=== PATIENT | female | born 2000 | race African-American/Black ===

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

== ENCOUNTER → 2022-09-06 | Outpatient (CLI) | payer MEDICAID, SELFPAY ==
[2022-09-06 12:28] LABS: Absolute Lymphocyte Count 1.59 X10^3/uL (0.83-4.51); Absolute Neutrophil Count 5.4 X10^3/uL (2.0-7.7); Basophil# 0.04 X10^3/uL; Basophil% 0.5 % (0-1); Eosinophil# 0.07 X10^3/uL; Eosinophils% 0.9 % (0-5); Hematocrit 36.1 % (37-47); Hemoglobin 12.5 g/dL (12.0-15.0); Lymphocyte # 1.59 X10^3/ul (0.83-4.51); Lymphocyte % 21.5 % (19-41); Mean Corp Hgb Conc 34.6 g/dL (32-36); Mean Corpuscular Hgb 32.1 pg (27.0-32.0); Mean Corpuscular Volume 92.8 fL (81-99); Mean Platelet Vol. 10.1 fl (6.2-12.0); Monocyte# 0.31 X10^3/uL; Monocyte% 4.2 % (0-10); NRBC Flagged by Analyzer 0 % (0-5); Neutrophil # 5.38 X10^3/uL (2.7-7.7); Neutrophil % 72.6 % (47-70); Platelet Count 261 K/mm3 (150-450); RBC Distribution Width CV 12.4 % (11.6-14.6); RBC Distribution Width SD 42.3 fl (35.1-43.9); Red Blood Count 3.89 M/mm3 (4.2-5.4); White Blood Count 7.4 K/mm3 (4.4-11.0)
[2022-09-06 13:40] LABS: HIV - WCH Non-Reactive (Nonreactive); Hepatitis B Surface Antigen Non-Reactive (Nonreactive); Hepatitis C Antibody Non-Reactive (Nonreactive); Rubella IgG Reactive (Nonreactive); Syphilis Antibodies Non-reactive
[2022-09-07 09:50] LABS: V-Zoster IgG (Immunity) < 135 index (Immune >165)
== END | disposition home or self-care (01) ==
LOC: WOBLAB 12:04
PROVIDERS: PCP Pediatrics; Visit Provider Obstetrics & Gynecology
DX: Z34.81 Encounter for supervision of other normal pregnancy, first trimester (principal)
CPT/HCPCS: 36415; 85025; 86703; 86762; 86780; 86787; 86803; 87086; 87340

== ENCOUNTER → 2023-01-03 | Outpatient (CLI) | payer MEDICAID, SELFPAY ==
[2023-01-03 11:40] LABS: Hematocrit 36.8 % (37-47); Hemoglobin 12.4 g/dL (12.0-15.0); Mean Corp Hgb Conc 33.7 g/dL (32-36); Mean Corpuscular Volume 97.9 fL (81-99); Mean Platelet Vol. 10.4 fl (6.2-12.0); Platelet Count 241 K/mm3 (150-450); RBC Distribution Width CV 12.4 % (11.6-14.6); RBC Distribution Width SD 44.9 fl (35.1-43.9); Red Blood Count 3.76 M/mm3 (4.2-5.4); White Blood Count 10.9 K/mm3 (4.4-11.0)
[2023-01-03 11:49] LABS: Glucose Challenge Gest 1H 50g 71 mg/dL (70-140)
[2023-01-03 12:07] LABS: Syphilis Antibodies Non-reactive
== END | disposition home or self-care (01) ==
LOC: WOBLAB 10:57
PROVIDERS: PCP Pediatrics; Visit Provider Obstetrics & Gynecology
DX: Z34.82 Encounter for supervision of other normal pregnancy, second trimester (principal)
CPT/HCPCS: 36415; 82950; 85027; 86780

== ENCOUNTER 2023-04-02 18:05 | Outpatient (CLI) | payer MEDICAID, SELFPAY ==
[2023-04-02 18:28] VITALS: BMI 29.5
[2023-04-02 18:36] VITALS: BP 115/70; PULSE 80; TEMP 36.9
[2023-04-02 19:33] VITALS: BMI 26.0
--- NOTE | 2023-04-03 03:29 | OB.TRI.PN ---
Progress Notes Progress Note: at 39w3d for complaint of contractions and decreased movement. No vaginal bleeding or leakage of fluid. Contractions started last night and on and off throughout the day. Contractions 5-10 minutes apart and some are painful. Laboratory Studies: NST 135, moderate, accels, 1 variable deceleration. Reactive 1cm/50/-2 Assessment & Plan (1) Decreased movement: (2) 39 weeks gestation of : PLAN: Plan 1) Reactive NST 2) Not in active labor, D/C home, labor instructions reviewed and patient agreeable to plan
== END 2023-04-02 19:40 | disposition home or self-care (01) ==
LOC: WPOUT 18:13 → WP 18:13
PROVIDERS: PCP Pediatrics; Visit Provider Advanced Practice Midwife
DX: O36.8130 Decreased fetal movements, third trimester, not applicable or unspecified (principal); Z3A.39 39 weeks gestation of pregnancy
CPT/HCPCS: 59025; 59050; 99221; G0378

== ENCOUNTER 2023-04-08 02:24 | Outpatient (CLI) | payer MEDICAID, SELFPAY ==
[2023-04-08 02:26] VITALS: BMI 26.3
[2023-04-08 02:39] VITALS: TEMP 37.3; O2SAT 100
[2023-04-08 02:40] VITALS: BP 146/95; PULSE 67
[2023-04-08 04:01] VITALS: BP 129/83; PULSE 71
[2023-04-09] VITALS (76 sets, daily range): BP systolic 106–163; BP diastolic 58–98; PULSE 66–102; TEMP 36.5–37.2; O2SAT 81–100
== END 2023-04-08 04:55 | disposition home or self-care (01) ==
LOC: WPOUT 02:24 → WP 02:24
PROVIDERS: PCP Pediatrics; Visit Provider Advanced Practice Midwife
DX: O47.9 False labor, unspecified (principal); Z3A.00 Weeks of gestation of pregnancy not specified
CPT/HCPCS: 59025; 59050 ×2; G0378 ×2; 99221

== ENCOUNTER 2023-04-09 01:28 | Inpatient (IN) | payer MEDICAID, SELFPAY ==
[2023-04-09 01:36] VITALS: BMI 25.2
[2023-04-09] MEDS: Lactated Ringers 1,000 ML 200 ML IV ×2 (01:45→07:22)
[2023-04-09] MEDS: LACTATED RINGERS 500 ML 999 ML IV (01:45)
[2023-04-09 01:55] LABS: Absolute Neutrophil Count 10.2 X10^3/uL (2.0-7.7); Basophil# 0.04 X10^3/uL; Basophil% 0.3 % (0-1); Eosinophil# 0.07 X10^3/uL; Eosinophils% 0.5 % (0-5); Hematocrit 35.3 % (37-47); Hemoglobin 11.5 g/dL (12.0-15.0); Lymphocyte % 16.7 % (19-41); Mean Corp Hgb Conc 32.6 g/dL (32-36); Mean Corpuscular Hgb 30.5 pg (27.0-32.0); Mean Corpuscular Volume 93.6 fL (81-99); Mean Platelet Vol. 11.3 fl (6.2-12.0); Monocyte# 0.65 X10^3/uL; Monocyte% 4.9 % (0-10); NRBC Flagged by Analyzer 0 % (0-5); Neutrophil # 10.16 X10^3/uL (2.7-7.7); Neutrophil % 77.1 % (47-70); Platelet Count 267 K/mm3 (150-450); RBC Distribution Width CV 12.8 % (11.6-14.6); RBC Distribution Width SD 43.8 fl (35.1-43.9); Red Blood Count 3.77 M/mm3 (4.2-5.4); White Blood Count 13.2 K/mm3 (4.4-11.0)
[2023-04-09] MEDS: fentaNYL-bupivacaine (epidural) 100 ML BAG EPIDURAL ×2 (03:00→07:50)
[2023-04-09 03:41] LABS: Syphilis Antibodies Non-reactive
[2023-04-09] MEDS: Ondansetron 4 MG/2 ML Vial IV (07:51)
--- NOTE | 2023-04-09 08:40 | PCM.HP.OB ---
HPI - General General Date of Admission: 04/09/23 HPI Narrative NORMA SHIRLEY, is a 23 F who presents at 40w2d with contractions that started yesterday and have continued. Increased in frequency and pain. No leakage of fluid or vaginal bleeding. History of CT in August,, negative in . Maternal Data Information MITCHELL Calculator Estimated Delivery Date Method Current WG Current Estimate 04/07/23 Manual 40w 2d PFSH PFSH Home Medications PNV#14-iron fum-FA#4-ren-[id number] 27 mg iron-1 mg-300 mg-50 mg capsule 1 cap PO 04/02/23 [History Last Taken 04/08/23] Allergy/AdvReac Type Severity Reaction Status Date / Time cefazolin AdvReac Mild Hives Verified 04/09/23 01:37 EST Social History (Updated 07/19/18 @ 16:12 by Dane KHAN, PA) Smoking Status: Former smoker alcohol intake: never History Elective abortions Hx Para 0 Spontaneous abortions Hx # Term Pregnancies Ectopic pregnancies Hx # Pregnancies Multiple births # of living children NST FHR Rate Baby A Baseline: 125 Variability:: Moderate Accelerations:: 15 x 15 Decelerations:: Variable FHR Category:: Category II Uterine Activity:: every 2-5 minutes, strong ROS Constitutional Constitutional: Reports systems reviewed and no addt'l complaints, except as documented; Denies headache(s) Eyes Eyes: Denies acute decrease in peripheral vision, blurry vision or change in vision ENT HEENT: Reports systems reviewed and no addt'l complaints, except as documented Cardiovascular Cardiovascular: Denies chest pain or dizziness Respiratory/Chest Respiratory/Chest: Denies cough, dyspnea, dyspnea on exertion, shortness of breath at rest or shortness of breath with exertion Gastrointestinal Gastrointestinal: Denies abdominal pain, diarrhea, nausea or vomiting Genitourinary Genitourinary: Denies abdominal discomfort Musculoskeletal Musculoskeletal: Denies limited range of motion Integumentary Integumentary: Reports systems reviewed and no addt'l complaints, except as documented Neurologic Neurologic: Reports systems reviewed and no addt'l complaints, except as documented Psychiatric Psychiatric: Reports systems reviewed and no addt'l complaints, except as documented Endocrine Endocrinology: Reports systems reviewed and no addt'l complaints, except as documented Hematologic/Lymphatic Hematologic/Lymphatic: Reports systems reviewed and no addt'l complaints, except as documented Allergic/Immunologic Allergic/Immunologic: Reports systems reviewed and no addt'l complaints, except as documented Vital Signs Vital Signs Vital Signs: Weight Weight: 142 lb 9.6 oz Body Mass Index (BMI) 25.2 Physical Exam Const alert and oriented x3 General Appearance: cooperative Orientation / Consciousness: awake, oriented to person, oriented to place and oriented to time Exam Limitations: no limitations HEENT normocephalic Head and Scalp: normal to inspection, normocephalic and atraumatic Face and Sinus: normal facial exam Eyes General Eye: normal appearance of both eyes Neck full ROM Chest Chest: symmetrical chest wall rise Resp normal respiratory effort and normal air movement Auscultation: clear to auscultation bilaterally Cardio regular rate, regular rhythm, S1 normal heart sound, S2 normal heart sound, no murmurs, no rub, no gallops and no clicks GI normal to inspection, nondistended, normoactive bowel sounds and non-tender appearance of the vagina normal Bladder / Kidney Exam: no CVA tenderness Amniotic Fluid: other SROM. Appears clear amniotic fluid but small greenish mucous. Will continue to monitor for possible meconium. Back/Spine normal ROM Extremity normal to inspection and full ROM Skin no rashes or lesions noted Neuro oriented x3 and moves all extremities Sensorium / Orientation: awake, alert and oriented to person Labs Labs Labs: Blood Type A POSITIVE Antibody Screen NEGATIVE Hct 35.3 % (37-47) L Hgb 11.5 g/dL (12.0-15.0) L Syphilis Total Ab Non-reactive VZV IgG Antibody < 135 index (Immune >165) L Rubella IgG Antibody Reactive (Nonreactive) Hep Bs Antigen Non-Reactive (Nonreactive) Hepatitis C Antibody Non-Reactive (Nonreactive) HIV 1&2 Antibody Non-Reactive (Nonreactive) Glucose 1 Hr 50 gm 71 mg/dL (70-140) GC/CT negative GBS negative Assessment & Plan (1) 40 weeks gestation of : (2) Active labor at term: (3) History of bipolar disorder: (4) History of depression: (5) History of chlamydia: PLAN: Plan 1) Admit to labor and delivery 2) Epidural for pain management 3) Routine labs 4) GBS negative 5) Continuous EFM 6) collaborative physician and notified of patient status
[2023-04-09] MEDS: Oxytocin 15 Units/NS 250ml 15 UNITS/250 ML IV.SOLN 2 UNITS IV (09:55)
--- NOTE | 2023-04-09 10:42 | OB.TRI.PN_ITS ---
Progress Notes Progress Note: Presents at 40w1d with MITCHELL 04/07/23 with irregular contractions. No leakage of fluid or vaginal bleeding NST 125, moderate, accels, Irregular, mild Laboratory Studies: Laboratory Tests 04/09/23 Range/Units 01:45 EST WBC 13.2 H (4.4-11.0) K/mm3 RBC 3.77 L (4.2-5.4) M/mm3 Hgb 11.5 L (12.0-15.0) g/dL Hct 35.3 L (37-47) % MCV 93.6 (81-99) fL MCH 30.5 (27.0-32.0) pg MCHC 32.6 (32-36) g/dL RDW Std Deviation 43.8 (35.1-43.9) fl RDW Coeff of Siva 12.8 (11.6-14.6) % Plt Count 267 (150-450) K/mm3 MPV 11.3 (6.2-12.0) fl Immature Gran % (Auto) 0.500 (0.0-0.9) % Neut % (Auto) 77.1 H (47-70) % Lymph % (Auto) 16.7 L (19-41) % [place] % (Auto) 4.9 (0-10) % Eos % (Auto) 0.5 (0-5) % Baso % (Auto) 0.3 (0-1) % Absolute Neuts (auto) 10.2 H (2.0-7.7) X10^3/uL Absolute Lymphs (auto) 2.20 (0.83-4.51) X10^3/uL Nucleated RBC % 0 (0-5) % Syphilis Total Ab Non-reactive Blood Type A POSITIVE Antibody Screen NEGATIVE Assessment & Plan (1) Irregular contractions: PLAN: Plan 1) No signs of active labor 2) D/C home
[2023-04-09] MEDS: Lactated Ringers 1,000 ML 999 ML IV (11:31)
--- NOTE | 2023-04-09 12:01 | EX.PCM.OBRPT ---
Assessment & Plan (1) Vaginal delivery: (2) First degree perineal laceration: Maternal Data Information MITCHELL Calculator Estimated Delivery Date Method Current WG Current Estimate 04/07/23 Manual 40w 2d Vaginal Delivery Maternal Presentation Maternal Presentation: Active Labor (pitocin augmentation) Operative Information Date of Procedure: 04/09/23 Pre-Operative Diagnosis: Active labor Post-Operative Diagnosis: Surgery / Procedure Performed: Spontaneous Vaginal Delivery Type of Anesthesia: Epidural Estimated Blood Loss: 250 ml Time of Delivery: 11:46 Findings Description of Procedure: Progressed to complete with urge to push. Epidural for pain management. of viable female infant over first degree periurethral laceration. APGARS 8,9 respectively. head delivered with body immediately forthcoming. Placed on maternal abdomen, strong cry. Mouth and nares suctioned for secretions. Pitocin started for active 3rd stage management. Cord doubly clamped and cut by friend after pulsations ceased, delayed cord clamping. Placenta delivered intact via dario, 3 vessel cord intact. Perineum inspected and revealed 1st degree periurethral laceration. Repaired with 3.0 vicryl rapide and epidural. Fundus firm and hemostasis achieved. EBL 250ml. Mom and baby stable, planning to breastfeed. Family bonding well. at hospital and notified of delivery. Presentation: Vertex and SANDI Amniotic Membrane Rupture Type: Spontaneous Amniotic Fluid Description: Clear Placental Delivery Description: Spontaneous Placenta Disposition: [facility] Cord Vessel Description: 3 Vessels Cord Entanglement: None A Gender: Female (1 minute): 8 (5 minute): 9 Delayed Cord Clamping: Yes Post Vaginal Delivery Medications Given After Delivery: IV Pitocin Episiotomy Description: None Laceration: Periurethral Extnsion/lac and 1st degree Complication Complications: None
[2023-04-09] MEDS: Oxytocin 15 Units/NS 250ml 15 UNITS/250 ML IV.SOLN 83 UNITS IV (12:36)
[2023-04-09] MEDS: Ibuprofen 600 MG Tablet PO (15:00)
[2023-04-09 16:30] VITALS: BP 134/72; PULSE 63; RESP 16; TEMP 36.8
[2023-04-09 18:54] VITALS: BP 145/70
[2023-04-09 19:55] VITALS: BP 120/85; PULSE 75; RESP 16; TEMP 36.8
--- NOTE | 2023-04-09 20:02 | NURSING ---
Pt requested IV to be taken out. This RN educated pt the possible need to have a new IV started due to high BP and trouble urinating. Pt verbalized understanding
[2023-04-09 20:25] LABS: Absolute Lymphocyte Count 1.72 X10^3/uL (0.83-4.51); Absolute Neutrophil Count 11.8 X10^3/uL (2.0-7.7); Basophil# 0.05 X10^3/uL; Basophil% 0.3 % (0-1); Eosinophil# 0.04 X10^3/uL; Eosinophils% 0.3 % (0-5); Hematocrit 31.1 % (37-47); Hemoglobin 10.2 g/dL (12.0-15.0); Lymphocyte # 1.72 X10^3/ul (0.83-4.51); Lymphocyte % 11.8 % (19-41); Mean Corp Hgb Conc 32.8 g/dL (32-36); Mean Corpuscular Hgb 30.8 pg (27.0-32.0); Mean Platelet Vol. 10.9 fl (6.2-12.0); Monocyte# 0.94 X10^3/uL; Monocyte% 6.4 % (0-10); NRBC Flagged by Analyzer 0 % (0-5); Neutrophil # 11.77 X10^3/uL (2.7-7.7); Neutrophil % 80.7 % (47-70); Platelet Count 214 K/mm3 (150-450); RBC Distribution Width CV 12.8 % (11.6-14.6); RBC Distribution Width SD 44.3 fl (35.1-43.9); Red Blood Count 3.31 M/mm3 (4.2-5.4); White Blood Count 14.6 K/mm3 (4.4-11.0)
[2023-04-09 20:48] LABS: ALB/GLOB Ratio 0.8 RATIO (0.9-2.4); AST(SGOT) 32 U/L (15-37); Alanine Aminotransfer ALT/SGPT 18 U/L (13-56); Albumin, Serum 2.5 g/dL (3.2-5.0); Alkaline Phosphatase 130 U/L (45-117); Anion Gap 5 (5-15); BUN 9 mg/dL (7-18); BUN/Creat Ratio 12.6 RATIO (10-20); Calcium,Total 8.1 mg/dL (8.5-10.1); Chloride 108 mmol/L (98-107); Creatinine, Serum 0.71 mg/dL (0.55-1.02); EST Glomerular Filtration Rate 110 mL/min (>60); Est Glom Filt Rate - Afr Amer 133 mL/min (>60); Estimated Creatinine Clearance 103.68 ml/min; Globulin 3.1 g/dL (2.2-4.2); Glucose 97 mg/dL (74-106); Potassium 3.9 mmol/L (3.5-5.1); Protein, Total 5.6 g/dL (6.4-8.2); Sodium Level 138 mmol/L (136-145)
[2023-04-09 20:52] VITALS: BP 135/78; PULSE 72
[2023-04-09] MEDS: NIFEdipine 30 MG Tablet PO (21:17)
[2023-04-09 21:55] VITALS: BP 125/84
[2023-04-09 23:26] VITALS: BP 132/84; PULSE 81; RESP 16; TEMP 36.7
[2023-04-10 04:31] VITALS: BP 103/74; PULSE 80; RESP 16; TEMP 36.7
[2023-04-10 07:39] VITALS: BP 113/77; PULSE 82; RESP 18; TEMP 36.6; O2SAT 99
--- NOTE | 2023-04-10 08:48 | PCM.PN.OB ---
Subjective Subjective Pain well controlled. Average lochia. Denies headache or visual changes. Objective Data Objective Data Vital Signs: Vital Signs Temp Pulse Resp BP Pulse Ox O2 Del Method 97.9 F 82 18 113/77 99 Room Air 04/10/23 07:39 04/10/23 07:39 04/10/23 07:39 04/10/23 07:39 04/10/23 07:39 04/10/23 07:39 Oxygen Delivery Method Room Air Weight: 64.682 kg Body Mass Index (BMI) 25.2 Intake & Output: Intake and Output for Last 24 Hours 04/09/23 04/09/23 04/10/23 00:59 23:59 23:59 Intake Total Output Total Balance Lab / Micro Data 04/09/23 20:18 04/09/23 20:18 Labs: Laboratory Results - last 24 hr 04/09/23 20:18: WBC 14.6 H, RBC 3.31 L, Hgb 10.2 L, Hct 31.1 L, MCV 94.0, MCH 30.8, MCHC 32.8, RDW Std Deviation 44.3 H, RDW Coeff of Siva 12.8, Plt Count 214, MPV 10.9, Immature Gran % (Auto) 0.500, Neut % (Auto) 80.7 H, Lymph % (Auto) 11.8 L, [place] % (Auto) 6.4, Eos % (Auto) 0.3, Baso % (Auto) 0.3, Absolute Neuts (auto) 11.8 H, Absolute Lymphs (auto) 1.72, Nucleated RBC % 0, Sodium 138, Potassium 3.9, Chloride 108 H, Carbon Dioxide 25.0, Anion Gap 5, BUN 9, Creatinine 0.71, Estim Creat Clear Calc 103.68, Est GFR (MDRD) Af Amer 133, Est GFR (MDRD) Non-Af 110, BUN/Creatinine Ratio 12.6, Glucose 97, Calcium 8.1 L, Total Bilirubin 0.90, AST 32, ALT 18, Alkaline Phosphatase 130 H, Total Protein 5.6 L, Albumin 2.5 L, Globulin 3.1, Albumin/Globulin Ratio 0.8 L Physical Exam Const alert and no apparent distress Narrative: Fundus firm, below umbilicus. Assessment & Plan (1) Vaginal delivery: PLAN: day #1 status post vaginal delivery. Blood pressure elevated overnight, was started on Procardia. No evidence of severe preeclampsia. Will monitor overnight to ensure blood pressures are stable. Recheck CBC today.
[2023-04-10 12:24] VITALS: BP 136/74; PULSE 83; RESP 18; TEMP 37.2
[2023-04-10 14:01] LABS: Hematocrit 31.8 % (37-47); Hemoglobin 10.4 g/dL (12.0-15.0); Mean Corp Hgb Conc 32.7 g/dL (32-36); Mean Corpuscular Hgb 30.9 pg (27.0-32.0); Mean Corpuscular Volume 94.4 fL (81-99); Mean Platelet Vol. 11.1 fl (6.2-12.0); Platelet Count 222 K/mm3 (150-450); RBC Distribution Width CV 13.2 % (11.6-14.6); RBC Distribution Width SD 45.4 fl (35.1-43.9); Red Blood Count 3.37 M/mm3 (4.2-5.4); White Blood Count 13.8 K/mm3 (4.4-11.0)
[2023-04-10] MEDS: Ibuprofen 600 MG Tablet PO (15:48)
[2023-04-10 15:51] VITALS: BP 138/87; PULSE 72; RESP 18; TEMP 37.2
[2023-04-10] MEDS: NIFEdipine 30 MG Tablet PO (18:28)
[2023-04-10 20:30] VITALS: BP 132/80; PULSE 84; RESP 15; TEMP 36.3; O2SAT 97
[2023-04-11 02:00] VITALS: BP 113/56; PULSE 67; RESP 15; TEMP 36.9; O2SAT 96
[2023-04-11 07:50] VITALS: BP 109/65; PULSE 105; RESP 16; TEMP 36.1; O2SAT 95
[2023-04-11] MEDS: Ibuprofen 600 MG Tablet PO (07:51)
--- NOTE | 2023-04-11 10:39 | PN.OBGYN_ITS ---
Subjective Subjective Doing well per patient and nursing staff. Ambulating and taking PO without difficulty. Voiding and passing flatus. Pain controlled. , services for assistance. Denies headache, visual changes, chest pain, shortness of breath, leg pain or increased bleeding. Lochia normal. Objective Data Objective Data Vital Signs: Vital Signs Temp Pulse Resp BP Pulse Ox O2 Del Method 96.9 F L 105 H 16 109/65 95 Room Air 04/11/23 07:50 04/11/23 07:50 04/11/23 07:50 04/11/23 07:50 04/11/23 07:50 04/11/23 07:50 Oxygen Delivery Method Room Air Weight: 142 lb 9.6 oz Body Mass Index (BMI) 25.2 Intake & Output: Intake and Output for Last 24 Hours 04/09/23 04/10/23 04/11/23 23:59 23:59 23:59 Intake Total Output Total Balance Lab / Micro Data 04/10/23 13:50 04/09/23 20:18 Labs: Laboratory Results - last 24 hr 04/10/23 13:50: WBC 13.8 H, RBC 3.37 L, Hgb 10.4 L, Hct 31.8 L, MCV 94.4, MCH 30.9, MCHC 32.7, RDW Std Deviation 45.4 H, RDW Coeff of Siva 13.2, Plt Count 222, MPV 11.1 ROS Constitutional Constitutional: Reports systems reviewed and no addt'l complaints, except as documented; Denies headache(s) Eyes Eyes: Denies acute decrease in peripheral vision, blurry vision or change in vision ENT HEENT: Reports systems reviewed and no addt'l complaints, except as documented Cardiovascular Cardiovascular: Denies chest pain or dizziness Respiratory/Chest Respiratory/Chest: Denies cough, dyspnea, dyspnea on exertion, shortness of breath at rest or shortness of breath with exertion Gastrointestinal Gastrointestinal: Denies abdominal pain, diarrhea, nausea or vomiting Genitourinary Genitourinary: Denies abdominal discomfort Musculoskeletal Musculoskeletal: Denies limited range of motion Integumentary Integumentary: Reports systems reviewed and no addt'l complaints, except as documented Neurologic Neurologic: Reports systems reviewed and no addt'l complaints, except as docu mented Psychiatric Psychiatric: Reports systems reviewed and no addt'l complaints, except as documented Endocrine Endocrinology: Reports systems reviewed and no addt'l complaints, except as documented Hematologic/Lymphatic Hematologic/Lymphatic: Reports systems reviewed and no addt'l complaints, except as documented Allergic/Immunologic Allergic/Immunologic: Reports systems reviewed and no addt'l complaints, except as documented Physical Exam Const alert and oriented x3 General Appearance: cooperative Orientation / Consciousness: awake, oriented to person, oriented to place and oriented to time Exam Limitations: no limitations HEENT normocephalic Head and Scalp: normal to inspection, normocephalic and atraumatic Face and Sinus: normal facial exam Eyes General Eye: normal appearance of both eyes Neck full ROM Chest Chest: symmetrical chest wall rise Resp normal respiratory effort and normal air movement Auscultation: clear to auscultation bilaterally Cardio regular rate, regular rhythm, S1 normal heart sound, S2 normal heart sound, no murmurs, no rub, no gallops and no clicks GI normal to inspection, nondistended, normoactive bowel sounds and non-tender appearance of the vagina normal Bladder / Kidney Exam: no CVA tenderness Back/Spine normal ROM Extremity normal to inspection and full ROM Skin no rashes or lesions noted Neuro CN's II-XII intact bilaterally and moves all extremities Sensorium / Orientation: awake, alert and oriented to person Assessment & Plan (1) Vaginal delivery: (2) First degree perineal laceration: PLAN: Plan 1) Routine PP care, PPD#2 and GHTN 2) BP mild to normal range, Will continue procardia XL 30mg PO once daily. 3) Follow up for BP check in 3 days in office 4) D/C home today
--- NOTE | 2023-04-11 10:42 | PCM.DC.SUM ---
Providers Date of Admission: 04/09/23 Primary Care Physician: Dr. Kady Rdz MD Reason For Visit: VAGINAL DELIVERY Diagnosis Discharge Diagnosis (1) Vaginal delivery: Status: Acute Code(s): O80 - Encounter for full-term uncomplicated delivery (2) First degree perineal laceration: Status: Acute Code(s): O70.0 - First degree perineal laceration during delivery Plan 1) Routine PP care, PPD#2 and GHTN 2) BP mild to normal range, Will continue procardia XL 30mg PO once daily. 3) Follow up for BP check in 3 days in office 4) D/C home today Medications at Discharge Home Medications PNV#14-iron fum-FA#6-[id number]-ghlltipm 27 mg iron-1 mg-300 mg-50 mg capsule 1 cap PO 04/02/23 Hospital Course Summary of Care Provided Minutes Spent on Discharge: 15 Weight / BMI Weight Weight: 142 lb 9.6 oz Body Mass Index (BMI) 25.2 ABG / Lab / Microbiology Data 04/10/23 13:50 04/09/23 20:18 Laboratory: Laboratory Results - last 24 hr 04/10/23 13:50: WBC 13.8 H, RBC 3.37 L, Hgb 10.4 L, Hct 31.8 L, MCV 94.4, MCH 30.9, MCHC 32.7, RDW Std Deviation 45.4 H, RDW Coeff of Siva 13.2, Plt Count 222, MPV 11.1 Meaningful Use Info Meaningful Use Diagnoses (Choose all that apply): None applicable Discharge Plan Admission Admit Date/Time: 04/09/23 01:28 EST Primary Reason for Your Visit: Vaginal Delivery, high blood pressure Attending Provider: Jayne Ramirez Primary Care Provider: Kady Rdz Instructions Patient Instructions: Eclampsia After Childbirth Additional Instructions / Restrictions: Please check blood pressure daily. If BP is 110/70 or below please call the office for further instructions and if you should continue to take or hold the medications. Bring your blood pressure log to each visit. Discharge Orders/Prescriptions Prescriptions: No Action PNV #14-iron-FA#6-[id number] 27 mg iron-1 mg -300 mg-50 mg capsule 1 cap PO Referrals / Follow Up: Jayne Ramirez CNM [Med Staff - Adv Practice Prof] - (Follow up for BP check end of week in office. Follow up in 2 weeks and 6 weeks PP. ) Kady Rdz MD [Primary Care Provider] - Disposition Disposition (needs filled in before D/C Order can be placed): Home, Self Care
--- NOTE | 2023-04-11 11:07 | CASEMGMT ---
Social Work Assessment Labor and Delivery Unit Patient Address:[address] [place] [address] [place] [address] Phone number: [phone] Date of Referral: 04/09/23 Time of Referral:? 1621 Referred By: Jayne Ramirez Date of Intervention: ??04/11/23 Time of Intervention:? 944 Reason for Referral:? History of anxiety and depression Sw completed chart review and acknowledges social work consult entered due to maternal mental health history. Sw presented to bedside and introduced self to mother of baby (JOSELYN Yang) and explained sw role during hospitalization. Sw completed psychosocial assessment, asked MOB to complete an Harrison Depression Scale and provided information and literature regarding baby blues and depression. History obtained from: medical records and mother of baby (KATT)??? Household composition: Currently residing with KATT is baby. MOB states that noone else lives with her at this time. Patient's parent/guardian status:? KATT states that she used to work as a dancer at a [employer] and met father of kenny (FOB- Juancarlos) while working there. MOB states that Juancarlos was a bouncer at the club when she worked there and they started seeing each other. KATT states that EDDY has three other children- she does not know how old they are. MOB states that she is not certain of the status of her relationship with EDDY at this time, but does know that he intends to assist in parenting with KATT. KATT denies any concerns of domestic violence or intimate partner violence. ? Medical History: KATT is 1, para 0- now 1 following delivery of baby. KATT received routine care during with [facility]. KATT delivered baby on 04/09/23 via vaginal delivery at 40 weeks gestation. Baby girl, named Elida Schroeder, was born weighing 7lb 12oz and her apgars were 8 and 9 at one and five minutes of life respectfully. KATT reports that she is breast feeding and it is going well. Educational Status:? MOB states that she graduated from high school after attending [employer]. MOB denies any concerns with reading, learning or comprehension. 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 KATT is able to take four weeks off for maternity leave. MOB states that EDDY is also gainfully employed outside of the home. He is working two jobs. Supplies: KATT reports to obtaining all necessary baby supplies including: car seat, safe sleep space, clothes, diapers, wipes and a breast pump. Childcare/Caregiver(s):? KATT will be the primary caregiver to baby while she is on maternity leave. KATT states that when she is working her mom will be able to provide childcare. Transportation:??KATT reports that she got a DUI in July of this year, right before she got . MOB states that she left work after having a couple of drinks and got pulled over for switching lanes incorrectly. MOB states that her drivers license is suspended because she has not paid off the fine. MOB states that she has just over $300 to pay off. KATT reports that her sister takes her to all of her doctors appointments and to work. MOB states that her drivers license will be suspended until July 2023. Programs/Agencies Involved: ?KATT is connected to community resources provided by [employer] [facility], including insurance ([employer]) and WIC. ??MOB denies receiving food stamps. Sw encouraged MOB to reapply and add baby to her case. - Yadi educated MOB on benefits of getting connected to [employer]. MOB receptive to referral, sw to make referral at discharge. Children Services/Legal Issues:??? No history of children services involvement, no issues or concerns warranting referral at this time. Behavioral Health Issues: ??Mental Health History:?KATT states that she is uncertain if EDDY has any mental health diagnoses. KATT reports that she has been diagnosed with anxiety, depression and BiPolar. KATT has been connected to counseling supports and psychiatry services in the past with [facility]. KATT states that she is open to getting reconnected to mental health services, especially if she were to struggle with her mental health . KATT states that her mom and her sisters are good supports for her to talk to when she is struggling. KATT completed an Harrison Depression Scale, her score was a 6. Yadi provided education and literature for her to review.?? Substance Use History:??KATT denies substance use prior to and during . Family History: KATT reports that her mom smokes cigarettes, and denies any family history of addiction and mental health. ? Drug Screens: ??No urine screens observed in chart review. Family/Social Stressors:? MOB denies any stressors or concerns at this time. Support Systems: MOB's mother (maternal grandma) is who she identifies as her biggest support person. MOB states that her sisters are also big supports for her. MOB states that although she can talk to FOB about any struggles she may be experiencing she does not view him as someone who would be able to help her overcome them. Depression/Shaken Baby/Safe Sleeping:? Sw educated MOB on signs and symptoms of baby blues and depression/ anxiety. Sw also educated MOB on psychosis and what symptoms to be on the lookout for, as MOB has history of Bipolar and could be more susceptible to experiencing psychosis. Sw provided MOB with literature to review regarding symptoms and appropriate coping mechanisms to utilize if MOB were to struggle. Sw educated MOB on shaken baby prevention and ABCs of safe sleep. MOB expressed understanding. ASSESSMENT:?MOB and baby admitted following labor and delivery. MOB talkative and receptive to sw involvement and support. MOB completed psychosocial assessment and Harrison Depression Scale. MOB with natural supports in place, but limited support provided by FOB- MOB states their relationship is complicated at this time. MOB aware that FOB may not be a strong support person for her needs, but does identify that he wants to co-parent with MOB. MOB with mental health history positive for depression, anxiety and Bipolar- MOB is not prescribed psychotropic medications at this time and is not connected to counseling supports or services. MOB identifies that she would benefit by getting reconnected to community mental health supports- resources were provided. PLAN:?MOB and baby to be discharged when medically ready. ?No other services requested or indicated. Shahrzad Garber, [employer], [employer]
== END 2023-04-11 11:00 | disposition home or self-care (01) | DRG 560 ==
LOC: WPOUT 01:32 → WP 01:32
PROVIDERS: Obstetrics & Gynecology; Admitting Provider Advanced Practice Midwife; PCP Pediatrics; Referring Provider Advanced Practice Midwife; Visit Provider Advanced Practice Midwife
DX: O76 Abnormality in fetal heart rate and rhythm complicating labor and delivery (principal); Z37.0 Single live birth; O99.344 Other mental disorders complicating childbirth; F31.9 Bipolar disorder, unspecified; O42.92 Full-term premature rupture of membranes, unspecified as to length of time between rupture and onset of labor; O70.0 First degree perineal laceration during delivery; O99.893 Other specified diseases and conditions complicating puerperium; R03.0 Elevated blood-pressure reading, without diagnosis of hypertension; Z3A.40 40 weeks gestation of pregnancy; Z63.0 Problems in relationship with spouse or partner; Z59.82 Transportation insecurity; Z86.19 Personal history of other infectious and parasitic diseases; Z87.891 Personal history of nicotine dependence
CPT/HCPCS: 59025; 59050; 80053; 85025; 85027; 86780; 86850; 86900; 86901; 99221; J7120; G0378; J2405

== ENCOUNTER 2024-04-15 17:25 | Outpatient (CLI) | payer MEDICAID, SELFPAY ==
[2024-04-15 17:33] VITALS: BP 132/83; PULSE 91
[2024-04-15 17:34] VITALS: RESP 16; TEMP 36.9
[2024-04-15] MEDS: Betamethasone/Betamethasone 30 MG/5 ML Vial 12 MG IM (18:01)
--- NOTE | 2024-04-15 18:04 | OB.TRI.HP_ITS ---
HPI - General General Date of Service: 04/15/24 HPI Narrative 24yo female @ 34.2 weeks who present c/o vaginal bleeding- pt reports woke up from nap and passed large clot- about size of egg- then proceeded to have continued bright red bleeding. pt reports for the past few days has been feeling achy in back and down legs. mild abdominal pain. pt reports good FM. pt states nothing in the vagina but today was lifting her daughter who is over 20 lbs. pt is known previa. pt offers no other concerns today- pt reports this is first bleeding episode of . PFSH PFSH Home Medications ?Medication ?Instructions ?Recorded ?Last Taken ?Type PNV#14-iron [id number] 1 cap PO DAILY 04/02/23 04/15/24 08:00 History 27 mg iron-1 mg-300 mg-50 mg 1 cap capsule aspirin 81 mg tablet,delayed 81 mg PO DAILY 04/15/24 04/15/24 08:00 History release (Adult Low Dose Aspirin) 81 mg ferrous sulfate 325 mg (65 mg 325 mg PO QODAY 04/15/24 04/15/24 08:00 History iron) tablet (iron) 325 mg Allergy/AdvReac Type Severity Reaction Status Date / Time cefazolin AdvReac Mild Hives Verified 04/15/24 17:39 Social History (Updated 07/19/18 @ 16:12 by Dane KHAN, PA) Smoking Status: Former smoker alcohol intake: never History 1 Elective abortions Hx Para 1 Spontaneous abortions Hx # Term Pregnancies Ectopic pregnancies Hx # Pregnancies Multiple births # of living children 1 Physical Exam Narrative abd: mild tenderness to palpation- no rebound, no guarding VE: speculum- cervix thick and closed. No active bleeding from os, small amount of blood in vault. ultrasound: shasta appears wnl - previa- posterior. Const alert and oriented x3 General Appearance: cooperative HEENT normocephalic GI GI Narrative: Gravid, non tender to palpation. OB / External & Speculum: external exam normal Extremity normal to inspection Skin no rashes or lesions noted Neuro oriented x3 and CN's II-XII intact bilaterally Psych Appearance: grossly normal NST FHR Rate Baby A Baseline: 140 Variability:: Moderate Accelerations:: 15 x 15 Decelerations:: None NST Reactive:: Yes FHR Category:: Category I Uterine Activity:: uterine irritability Assessment & Plan (1) Placenta previa affecting delivery: (2) Vaginal bleeding during , antepartum: (3) 34 weeks gestation of : (4) Short interval between pregnancies affecting in third trimester, a ntepartum: (5) History of pre-eclampsia in prior , currently : PLAN: Plan 24yo @ 34.2 weeks- Placenta previa with vaginal bleeding 1) celestone x 1 2) CBC, PT, PTT, Fibrinogen 3) Transfer to [facility]- Contacted M Dr. Lerner and transport Line. Will arrange transport to [facility]. Pt is stable at this time for transport. 4) IV saline lock 5) all questions were answered for patient and comfortable with plan of care.
[2024-04-15 18:06] VITALS: BMI 24.9
[2024-04-15 18:17] LABS: Absolute Neutrophil Count 4.5 X10^3/uL (2.0-7.7); Basophil# 0.04 X10^3/uL; Basophil% 0.5 % (0-1); Eosinophil# 0.08 X10^3/uL; Hematocrit 32.1 % (37-47); Lymphocyte % 35.2 % (19-41); Mean Corp Hgb Conc 34.3 g/dL (32-36); Mean Corpuscular Hgb 30.1 pg (27.0-32.0); Mean Corpuscular Volume 87.7 fL (81-99); Mean Platelet Vol. 10.5 fl (6.2-12.0); Monocyte# 0.51 X10^3/uL; Monocyte% 6.4 % (0-10); NRBC Flagged by Analyzer 0 % (0-5); Neutrophil % 56.5 % (47-70); Platelet Count 243 K/mm3 (150-450); RBC Distribution Width CV 12.4 % (11.6-14.6); RBC Distribution Width SD 39.8 fl (35.1-43.9); Red Blood Count 3.66 M/mm3 (4.2-5.4)
[2024-04-15 18:26] LABS: Prothrombin Time (Protime)PT. 13.1 SECONDS (11.7-14.9)
[2024-04-15 18:27] LABS: Fibrinogen 410 mg/dl (203-444); Partial Thromboplast Time 22.8 Seconds (24.1-36.2)
== END 2024-04-15 21:22 | disposition short-term general hospital (02) ==
LOC: WPOUT 17:28 → WP 17:29
PROVIDERS: PCP Pediatrics; Referring Provider Obstetrics & Gynecology; Visit Provider Obstetrics & Gynecology
DX: O44.13 Complete placenta previa with hemorrhage, third trimester (principal); Z3A.34 34 weeks gestation of pregnancy; Z87.891 Personal history of nicotine dependence
CPT/HCPCS: 36415; 59050; 76815; 85025; 85384; 85610; 85730; 96372; 99221; G0378; J0702